=== PATIENT | male | born 1940 | race Caucasian/White ===

== ENCOUNTER → 2021-06-16 | Outpatient (CLI) | payer MEDICARE ==
[~2021-06-16] MED LIST: CELEBREX 100MG100 MG PO; COLACE 100MG C100 MG PO; ELAVIL 50 MG TA50 MG PO; HYTRIN CAP 5 MG5 MG PO; KEFLEX CAP 500500 MG PO; LEVAQUIN500 MG PO; NORCO 5-325 TA1 EACH PO; NORVASC 5 MG TAB5 MG PO; PROSCAR5 MG PO; PROTONIX40 MG PO; TENORMIN 25 MG25 MG PO; VOLTAREN EC 7575 MG PO; ZANAFLEX4 MG PO; ZESTRIL40 MG PO
== END ==
LOC: WCC 09:03
DX: L89.153 Pressure ulcer of sacral region, stage 3 (principal); E11.622 Type 2 diabetes mellitus with other skin ulcer; I10 Essential (primary) hypertension
CPT/HCPCS: G0463